=== PATIENT | female | born 1980 | race American Indian/Alaskan Native ===

== ENCOUNTER 2018-11-07 10:42 | Day surgery (SDC) | payer MEDICAID ==
[2018-11-07] MEDS ORDERED: NACL 0.9% 1000 ML 1,000 ML IV SCH (12:00)
[2018-11-07] MEDS ORDERED: WATER FOR IRRIG STERILE IR ONE (14:40)
[2018-11-07] MEDS ORDERED: XYLOCAINE 2% INFILTRATI ONE (16:38)
[2018-11-07] MEDS ORDERED: VERSED ONE (16:38)
[2018-11-07] MEDS ORDERED: DIPRIVAN 10 MG/ML IV ONE (16:39)
--- NOTE | 2018-11-07 17:04 | Operative Report ---
Operative Report Operative Report: Date of procedure: 11/07/2018 Procedure: Colonoscopy with snare polypectomy . Attending physician: Tony Caballero MD [employer] Specialist: Tony Caballero MD Indication: Patient is a 38-year-old female who presents with a history of diarrhea and rectal bleeding and abdominal pain. A colonoscopy serves to evaluate patients symptoms so that treatment may be directed based on the findings. Consent: Informed consent was obtained after advising the patient and family (son)regarding nature of this procedure, its indications, potential benefits as well as possible complications including but not limited to bleeding perforation and adverse reaction to medication, infection, fecal incontinence, anorectal pain as well as other cardiopulmonary complications. An informed written and verbal consent was then obtained after due opportunity was provided for questions and answers. Monitoring: Patient was monitored continuously with pulse oximetry and electrocardiographic recordings as well as blood pressure recordings. Vital signs remained stable throughout this procedure with no untoward events. Preoperative assessment: Patient was assessed immediately prior to this procedure for capacity to tolerate monitored anesthesia care and moderate sedation as well as general anesthesia. Patient's ASA classification is 2, Mallampati class is 2, Hyomental distance is 3. Instrument: Appia video colonoscope. Multiple band ligator: Speedband SuperView Super 7 ([place]) Medications: Propofol given intravenously in divided doses. For details please refer to anesthesia records. Description of procedure: Patient was placed in the left lateral decubitus position after achieving sedation, a digital rectal examination was performed following which the colonoscope was introduced into the anal verge and advanced to the cecum which was identified by the cecal valve, the appendiceal orifice, as well as by the cecal strap and direct transillumination. The colonoscope was subsequently withdrawn with careful inspection of all mucosal surfaces. Patient tolerated this procedure well and was subsequently taken to the recovery room. The following findings were noted. Findings: Patient had a sessile 8-10 mm polyp in the sigmoid colon which was removed by snare electrocautery.. The rest of the colon to the cecum was normal. On the retroflex view at the anal verge, patient had friable internal hemorrhoids. Impression: Sigmoid colon polyp, status post snare polypectomy. Internal hemorrhoids. Plan: Follow pathology report and repeat colonoscopy in 5 years if polyps are adenomatous. Daily sitz baths needed. Benefit from hemorrhoid banding in the future. High Fiber diet.
[2018-11-07 17:37] VITALS: BP 134/89
--- NOTE | 2018-11-07 17:38 | Discharge Summary ---
Short Stay Discharge Plan Activity: advance as tolerated Weight Bearing Status: Weight Bear as Tolerated Diet: regular Additional Instructions: Post Sedation D/C Instructions When you return home you may resume your regular diet unless otherwise directed. -Go directly home from the hospital and rest quietly. You may resume normal activities tomorrow. -Do NOT drive, return to work, operate any machinery or make any important personal or business decisions today. -Do NOT drink any alcohol or take nerve or sleeping drugs. They add to the effects of the medicine still present in your body. - NO BLOOD THINNERS OR NSAIDS(I.E., IBUPROFEN) 3-5 DAYS -MAKE APPOINTMENT WITH DR. BORGES 1-2 WKS Follow up with: PRIMARY CARE, [Primary Care Provider] - 7 Days
== END 2018-11-07 10:43 | disposition home or self-care (01) ==
LOC: GIO 10:42
PROVIDERS: ATTEND Internal Medicine Gastroenterology
DX: K63.5 Polyp of colon (principal); K64.8 Other hemorrhoids; R19.7 Diarrhea, unspecified; R19.4 Change in bowel habit; K62.5 Hemorrhage of anus and rectum; K58.0 Irritable bowel syndrome with diarrhea; F17.210 Nicotine dependence, cigarettes, uncomplicated; M19.90 Unspecified osteoarthritis, unspecified site; F32.9 Major depressive disorder, single episode, unspecified; F41.9 Anxiety disorder, unspecified; Z79.899 Other long term (current) drug therapy; Z88.0 Allergy status to penicillin
CPT/HCPCS: 45381; 45385; 81025; 88305; J2250; J2704; J7030

== ENCOUNTER 2020-10-06 10:05 | Emergency (ER) | payer SELFPAY ==
[2020-10-06] MEDS ORDERED: ONDANSETRON 4 MG/2 ML INJ IV ONE (10:21)
[2020-10-06] MEDS ORDERED: diphenhydrAMINE 50 MG/ML VIAL IV ONE (10:21)
[2020-10-06] MEDS ORDERED: SODIUM CHLORIDE 0.9% 1000 ML 1,000 ML IV ONE ×2 (10:21→11:25)
--- NOTE | 2020-10-06 10:35 | Emergency Department Report ---
ED N/V/D HPI - General Chief complaint: Nausea/Vomiting/Diarrhea Stated complaint: VOMIT/NAUSEA PUI?: No Time Seen by Provider: 10/06/20 10:16 Source: patient, EMS Mode of arrival: Stretcher Limitations: No Limitations - History of Present Illness Initial comments: CC: "I ate [employer] 2 days ago. I have been sick ever since." HPI: Ms. Staton is a 40 yo female with hx of tobacco and marijuana dependence who presents with 2 days of nausea and vomiting. Her stomach felt upset shortly after eating food from [employer]. She has been vomiiting constantly for the past 2 days. She denies fever, cough, chest pain, abdominal pain. No past medical hx. Surg hx: cholecystectomy Daily marijuana and tobacco use MD complaint: nausea, vomiting -: Gradual, days(s) (2) Description of Vomiting: food contents Description of Diarrhea: other (no diarrhea) Associated Abdominal Pain: No Radiation: scalp Severity: severe Consistency: constant Improves with: none Worsens with: none Context: possible food poisoning (symptoms began after eating food from [employer]), other (daily marijuana use) Associated Symptoms: denies other symptoms - Related Data Home Medications Medication Instructions Recorded Confirmed Last Taken Amitriptyline 150 mg PO DAILY 11/06/18 11/06/18 11/06/18 Gabapentin 800 mg PO BID 11/06/18 11/06/18 11/06/18 Methocarbamol 500 mg PO BID 11/06/18 11/07/18 11/06/18 Vancomycin 125 mg PO QID 11/06/18 11/07/18 11/05/18 Vitamin D (Nf) 5,000 units PO QWEEK 11/06/18 11/07/18 11/01/18 Previous Rx's Medication Instructions Recorded Last Taken Type Promethazine [Phenergan] 25 mg PO Q6HR PRN #10 tab 10/06/20 Unknown Rx Allergies Allergy/AdvReac Type Severity Reaction Status Date / Time Penicillins Allergy Intermediate Unknown Verified 11/06/18 08:19 ED Review of Systems ROS: Stated complaint: VOMIT/NAUSEA Other details as noted in HPI Comment: All other systems reviewed and negative Constitutional: denies: fever, malaise Respiratory: denies: cough, shortness of breath Gastrointestinal: nausea, vomiting. denies: abdominal pain, diarrhea Neurological: denies: headache ED Past Medical Hx - Past Medical History Previous Medical History?: No Hx Arthritis: Yes - Surgical History Past Surgical History?: Yes Hx Cholecystectomy: Yes - Social History Smoking Status: Unknown if ever smoked - Medications Home Medications: Home Medications Medication Instructions Recorded Confirmed Last Taken Type Amitriptyline 150 mg PO DAILY 11/06/18 11/06/18 11/06/18 History Gabapentin 800 mg PO BID 11/06/18 11/06/18 11/06/18 History Methocarbamol 500 mg PO BID 11/06/18 11/07/18 11/06/18 History Vancomycin 125 mg PO QID 11/06/18 11/07/18 11/05/18 History Vitamin D (Nf) 5,000 units PO QWEEK 11/06/18 11/07/18 11/01/18 History Promethazine [Phenergan] 25 mg PO Q6HR PRN #10 tab 10/06/20 Unknown Rx ED Physical Exam - General Limitations: No Limitations General appearance: alert, in no apparent distress, other (patient appears uncomfortable, rolling around in bed) - Head Head exam: Present: atraumatic, normocephalic - Eye Eye exam: Present: normal appearance - ENT ENT exam: Present: mucous membranes moist - Neck Neck exam: Present: normal inspection, full ROM - Respiratory Respiratory exam: Present: normal lung sounds bilaterally. Absent: respiratory distress, wheezes, rales, rhonchi - Cardiovascular Cardiovascular Exam: Present: regular rate, normal rhythm, normal heart sounds. Absent: systolic murmur, diastolic murmur, rubs, gallop - GI/Abdominal GI/Abdominal exam: Present: soft, normal bowel sounds. Absent: distended, tenderness, guarding, rebound - Extremities Exam Extremities exam: Present: normal inspection - Neurological Exam Neurological exam: Present: alert, oriented X3 - Psychiatric Psychiatric exam: Present: normal affect, normal mood - Skin Skin exam: Present: warm, dry, intact, normal color. Absent: rash ED Course Vital Signs 10/06/20 10/06/20 10/06/20 10:07 10:46 11:16 Temperature 98.6 F Pulse Rate 84 53 L 49 L Respiratory 20 13 9 L Rate Blood Pressure 134/86 170/98 152/86 Blood Pressure 134/82 [Left] O2 Sat by Pulse 95 96 96 Oximetry 10/06/20 10/06/20 11:30 11:46 Temperature Pulse Rate 59 L 72 Respiratory 12 15 Rate Blood Pressure 148/85 150/97 Blood Pressure [Left] O2 Sat by Pulse 96 99 Oximetry ED Medical Decision Making - Lab Data Result diagrams: 10/06/20 10:39 10/06/20 10:39 - Medical Decision Making This is a healthy 40-year-old female with history of marijuana and tobacco dependence who presents with 2 days of persistent nausea vomiting. Differential diagnosis includes: Food poisoning, IBS, cannabinoid hyperemesis syndrome. No evidence of emergent conditions such as obstruction, acute kidney injury. Chemistry within normal limits. Electrolytes are within normal limits. Normal potassium. Nonspecific leukocytosis seen on CBC. No fever or persistent abdominal pain to suggest peritonitis or infection. Patient received 2 L IV fluid. She received relief with IV Zofran and IV diphenhydramine. She also received Haldol IM. I have prescribed promethazine. I strongly recommended cessation of marijuana use. Patient is discharged home. Critical care attestation.: If time is entered above; I have spent that time in minutes in the direct care of this critically ill patient, excluding procedure time. ED Disposition Clinical Impression: Intractable nausea and vomiting Disposition: DC-01 TO HOME OR SELFCARE Is pt being admited?: No Does the pt Need Aspirin: No Condition: Stable Instructions: Nausea and Vomiting, Adult, [id number] Additional Instructions: You likely have cannabinoid hyperemesis syndrome. Continued marijuana use will cause severe nausea and vomiting which can lead to kidney failure and dangerous dehydration. Prescriptions: Promethazine [Phenergan] 25 mg PO Q6HR PRN #10 tab PRN Reason: Nausea Referrals: ANJU GOMES MD [Staff Physician] - 3-5 Days
[2020-10-06 10:58] LABS: Basophils # (Auto) 0.1 K/mm3 (0.0-0.1); Basophils % (Auto) 0.5 % (0.0-1.8); Eosinophils % (Auto) 0.3 % (0.0-4.3); Hematocrit 46.3 % (30.3-42.9); Hemoglobin 15.7 gm/dl (10.1-14.3); Lymphocytes # (Auto) 2.1 K/mm3 (1.2-5.4); Lymphocytes % (Auto) 14.8 % (13.4-35.0); Mean Corpuscular HGB Conc 34 % (30-34); Mean Corpuscular Volume 94 fl (79-97); Monocytes # (Auto) 0.6 K/mm3 (0.0-0.8); Monocytes % (Auto) 4.6 % (0.0-7.3); Platelet Count 437 K/mm3 (140-440); Red Blood Count 4.95 M/mm3 (3.65-5.03); Red Cell Distribution Width 14.3 % (13.2-15.2)
[2020-10-06 11:15] LABS: Blood Urea Nitrogen 9 mg/dL (7-17); Calcium 9.8 mg/dL (8.4-10.2); Hemolysis Index 55
[2020-10-06 11:21] LABS: BUN/Creatinine Ratio 13
[2020-10-06] MEDS ORDERED: HALOPERIDOL LACTATE 5 MG/1 ML INJ IM ONE (11:26)
[2020-10-06 13:53] VITALS: BP 170/92
== END 2020-10-06 13:51 | disposition home or self-care (01) ==
LOC: ED 10:05
DX: R11.2 Nausea with vomiting, unspecified (principal); M19.90 Unspecified osteoarthritis, unspecified site; Z90.49 Acquired absence of other specified parts of digestive tract; Z79.899 Other long term (current) drug therapy
CPT/HCPCS: 36415; 80048; 85025; 96361; 96372; 96374; 96375; 99284; J1200; J1630; J2405; J7030